=== PATIENT | male | born 1950 | race Caucasian/White ===

== ENCOUNTER → 2020-07-24 09:46 | Outpatient (CLI) | payer MEDICARE, OTHER, SELFPAY ==
[2020-07-24 11:40] LABS: Coronavirus 19 IgG Antibody Negative (Negative); Coronavirus 19 IgM Antibody Negative (Negative)
== END ==
PROVIDERS: Visit Provider Internal Medicine Gastroenterology
DX: Z01.818 Encounter for other preprocedural examination (principal); Z12.11 Encounter for screening for malignant neoplasm of colon
CPT/HCPCS: 36415; 86328

== ENCOUNTER 2020-07-26 08:32 | Day surgery (SDC) | payer MEDICARE, OTHER, SELFPAY ==
[2020-07-18 11:13] VITALS: BMI 28.0
[2020-07-26] VITALS (7 sets, daily range): BP systolic 108–150; BP diastolic 65–78; PULSE 55–66; RESP 18; TEMP 36.1–36.2; O2SAT 95–99
[2020-07-26 09:04] LABS: POC Glucose,Bedside 176 (70-110)
--- NOTE | 2020-07-26 09:42 | P.PN_ITS ---
[facility] Anesthesia Checklist - Structural Data Admitted From: Home Planned Operative Procedure/s: colonoscopy Consent for Planned Operative Procedure(s) Verified: Yes - Airway Assessment C-Spine Mobility Assessed: Yes TMJ Mobility Assessed: Yes Dentition: Good Dentition - Neurological Assessment Level of Consciousness: Awake, Alert, Appropriate - Anesthesia Plan Anesthesia Risk discussed: Yes Anesthesia Plan: Verified ASA Class: II Anesthesia Type: MAC [facility] History I have reviewed the patient's past medical history: Yes Medical History: Reports:: Diabetes Mellitus Type 2, Hyperlipidemia, Hypertension Denies:: Cancer, Diabetes Mellitus Type 1, Internal Pacemaker, MRSA, Seizures *Have you ever received a pneumonia vaccine?: Yes *Have you received a flu vaccine this season?: Yes Anesthesia experience/problems:: none Other Surgeries: No: Pacemaker Amputation: No Fractures: Yes (RT ARM , LT ARM X2) - *Social History Last grade of school completed: Some college Smoking Status: Former smoker Smoking End Date: 09/06/1974 Alcohol Intake: current Alcohol Intake Frequency:: holidays/special occasions only Substance Use Type: denies use *Occupational Status:: employed Housing: house Household Members: spouse *Travel in the last 8 weeks: None Family Hx:: Cancer, Hypertension
--- NOTE | 2020-07-26 09:54 | P.PCN_ITS ---
[facility] Procedure Note Procedure Note:: Colonoscopy Procedure Report: Colonoscopy with cold snare polypectomy Endoscopist: Augusto Hernandez II, MD Referring physician: Noe Espinoza MD Date of Procedure: July 26, 2020 Equipment: Olympus 180 variable stiffness pediatric colonoscope Sedation: MAC sedation Indication: Mr. Keys is a 69-year-old gentleman who is here for follow-up screening/surveillance colonoscopy secondary to a personal history of colon polyps. He had a colonoscopy 5 years ago (Dr. Nigel Cardoso) at which time 2 or 3 benign polyps were removed. He also had a colonoscopy in November 2009. He reports no abdominal pain, weight loss, change in his bowel habits or rectal bleeding. He reports no family history of colon cancer. Procedure: Prior to the procedure, a history and physical exam was performed, and patient's medications and allergies were reviewed. The risks, benefits and alternatives of the sedation and procedure were discussed with the patient. All questions were answered and informed consent was obtained. The patient was brought to the procedure room. Patient identification and proposed procedure were verified by the physician and the nurse. The patient was placed in a left lateral decubitus position and the scope was passed under direct vision. Throughout the procedure, the patient's blood pressure, pulse, and oxygen saturations were monitored continuously. The colonoscopy was accomplished without difficulty. The patient tolerated the procedure well. Findings: On digital rectal examination there was normal rectal tone. There were no external hemorrhoids. The prostate was enlarged 2-3+ with mild firmness and mild asymmetry but without nodules. The colonoscope was introduced through the anal canal to the rectum and advanced to the cecum. The ileocecal valve and appendiceal orifice were identified. The scope was advanced a short distance into the ileum which appeared grossly normal. The scope was then withdrawn into the colon. There were 3 colon polyps (ascending x1 (5 mm), transverse x1 (7 mm) and descending x1 (3 mm)) which were all removed via cold snare polypectomy. The remaining cecum, ascending, transverse, descending, sigmoid and rectum were grossly normal. There were no other mucosal abnormalities identified. Upon retroflexion within the rectum there were grade 1-2 internal hemorrhoids.The preparation was excellent throughout with [place] Preparation Score of 9. The cecal time was 12 minutes. Impression: 1. Colonic polyps x3 2. Grade 1-2 internal hemorrhoids Plan: I will follow up the polyp pathology and recommend repeat colonoscopy again in 5-7 years based upon the polyp histology. I would encourage bulk fiber supplementation on a long-term daily maintenance basis.
== END 2020-07-26 10:55 | disposition home or self-care (01) ==
LOC: OUTP 08:34
PROVIDERS: PCP Family Medicine; Visit Provider Internal Medicine Gastroenterology
PROC: 0DJD8ZZ Inspection of Lower Intestinal Tract, Via Natural or Artificial Opening Endoscopic (ICD-10-PCS; CPT 45378; principal; 2020-07-26 09:30)
DX: Z12.11 Encounter for screening for malignant neoplasm of colon (principal); K63.5 Polyp of colon; K64.0 First degree hemorrhoids; E11.9 Type 2 diabetes mellitus without complications; I10 Essential (primary) hypertension; E78.5 Hyperlipidemia, unspecified
CPT/HCPCS: 45385; 82962; 88305

== ENCOUNTER 2022-05-04 15:30 | Emergency (ER) | payer OTHER, SELFPAY ==
[2022-05-04 17:18] VITALS: BP 0/0; PULSE 0; RESP 0; TEMP -17.7; TEMP 0
== END 2022-05-04 17:19 | disposition left against medical advice (07) ==
PROVIDERS: Emergency Provider Nurse Practitioner; PCP Family Medicine
DX: Z53.21 Procedure and treatment not carried out due to patient leaving prior to being seen by health care provider (principal)

== ENCOUNTER → 2023-06-25 09:37 | Outpatient (CLI) | payer MEDICARE, OTHER, SELFPAY ==
--- NOTE | 2023-06-25 09:47 | XR_ITS ---
FINAL REPORT CLINICAL HISTORY: SCIATICA left sided FINDINGS: 5 views of the lumbar spine were obtained. There is no evidence of fracture or dislocation. The vertebral alignment is normal. There are moderate degenerative changes and multilevel osteophytes. Facet arthropathy is noted. Mild vascular calcifications are present. No paraspinous soft tissue abnormalities identified. IMPRESSION: No acute bony abnormality. Reviewed, Interpreted and Dictated by Shoaib Knight III, MD Transcribed by Karla Araujo Authenticated and [facility]
== END ==
PROVIDERS: PCP Family Medicine; Visit Provider Family Medicine
DX: M54.50 Low back pain, unspecified (principal); M54.32 Sciatica, left side
CPT/HCPCS: 72110

== ENCOUNTER → 2023-07-14 16:12 | Outpatient (CLI) | payer MEDICARE, OTHER, SELFPAY ==
--- NOTE | 2023-07-14 16:18 | MR_ITS ---
FINAL REPORT TECHNIQUE: Multiplanar and multisequence imaging of the lumbar spine was obtained without contrast. CLINICAL HISTORY: LOW BACK PAIN AND LEFT LEG PAIN. NO INJURY OR TRAUMA. COMPARISON: None FINDINGS: There is normal alignment of the lumbar vertebral bodies. Vertebral body height is preserved. The spinal cord ends at the level of L1. There is normal signal intensity within the substance of the distal spinal cord. No acute bone marrow edema or pathologic marrow replacement. No acute paraspinal abnormality is identified. L1-2: Bilateral facet osteoarthropathy is present. There is no focal disc herniation, central canal stenosis or neuroforaminal narrowing. L2-3: Bilateral facet osteoarthropathy is present. There is no focal disc herniation, central canal stenosis or neuroforaminal narrowing. L3-4: Bilateral facet osteoarthropathy is present. There is an annular bulge which produces mild central canal stenosis and mild bilateral neural foraminal narrowing. L4-5: There is bilateral facet osteoarthropathy with ligamentum flavum hypertrophy. There is moderate canal and mild right, moderate left neural foraminal narrowing. L5-S1: There is an annular bulge with endplate degenerative change and facet osteoarthropathy. There is moderate bilateral neural foraminal narrowing. IMPRESSION: Multilevel degenerative change with facet osteoarthropathy at all levels of the lumbar spine. There is mild to moderate canal stenosis present at the L3-4 and L4-5 levels. Reviewed, Interpreted and Dictated by Radhika Shields MD Transcribed by Nancy Wiggins Authenticated and [facility]
== END ==
PROVIDERS: PCP Family Medicine; Visit Provider Family Medicine
DX: M54.32 Sciatica, left side (principal); M51.36 Other intervertebral disc degeneration, lumbar region; M47.816 Spondylosis without myelopathy or radiculopathy, lumbar region
CPT/HCPCS: 72148; 76376